=== PATIENT | male | born 2000 | race Hispanic/Latino ===

== ENCOUNTER 2018-06-08 07:10 | Emergency (ER) | payer SELFPAY ==
[2018-06-08] MEDS ORDERED: DIAZEPAM 2 MG TABLET ONE (07:33)
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
[2018-06-08 08:33] LABS: Urine Blood NEGATIVE (NEG); Urine Glucose NEGATIVE (NEG); Urine Protein NEGATIVE (NEG); Urine Specific Gravity 1.015 (1.005-1.030)
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
== END 2018-06-08 08:41 | disposition home or self-care (01) ==
LOC: ER 07:10
DX: S20.229A Contusion of unspecified back wall of thorax, initial encounter (principal); V59.59XA Passenger in pick-up truck or van injured in collision with other motor vehicles in traffic accident, initial encounter
CPT/HCPCS: 71046; 81003; 99284